=== PATIENT | female | born 1925 | race Caucasian/White ===

== ENCOUNTER → 2016-07-20 | Outpatient (CLI) | payer MEDICARE, OTHER ==
[~2016-07-20] MED LIST: ALEN70TA30 PO; AMLO5TAB4 PO; ASPI-650 PO; COMBIG5; CRES10 PO; DICY10CA62 PO; DOCU-103 PO; ENAL20TA73 PO; HYDR25TA6 PO; OMEP20CA16 PO; PRD1OP5; PREG50CA PO; TRAM50TA2 PO; TRAV5DRO5 OP
--- NOTE | 2016-07-21 19:12 | RADRPT ---
PROCEDURE: XR bilateral rib series. CLINICAL INDICATION: Bilateral rib pain. TECHNIQUE: 6 views of the left rib cage are available for review COMPARISON: 06/06/2016 FINDINGS: No acute fracture or dislocation is seen. No pneumothorax identified. No radiopaque foreign body is identified. The visualized portions of the underlying lung is clear. Advanced degenerative changes are seen in the bilateral shoulders. There is atherosclerotic calcification of the aorta. IMPRESSION: 1. Unremarkable bilateral rib cage x-ray series, specifically without displaced rib fracture or pne umothorax. RPTAT: QQ .Nate Borjas MD, Date Time Electronically viewed and signed by .Nate Borjas MD, on 07/21/2016 19:12 .M/
--- NOTE | 2016-07-22 16:03 | RADRPT ---
PROCEDURE: Right knee radiographs. CLINICAL INDICATION: Trauma due to a fall. Right knee pain. TECHNIQUE: Three views. Weight bearing. Frontal, lateral, and patellar view. COMPARISON: No prior studies are available for comparison. FINDINGS: There is no fracture or dislocation. Vascular calcifications are present consistent with atherosclerosis There are degenerative changes with osteophytes arising from all 3 joint compartment margins. There is medial and lateral joint compartment narrowing. There is lateral joint compartment deformity. There is no lytic or blastic lesion. There is no radiopaque foreign body. IMPRESSION: 1. Atherosclerosis. 2. Severe degenerative change. 3. No fracture. RPTAT: QQ .Wyatt Marie MD, MD Date Time Electronically viewed and signed by .Wyatt Marie MD, MD on 07/22/2016 16:03 .R/
--- NOTE | 2016-07-22 16:05 | RADRPT ---
PROCEDURE: XR Cervical Spine. CLINICAL INDICATION: Trauma due to a fall. Neck pain. TECHNIQUE: Three views of the cervical spine were performed. Frontal, lateral, and AP open-mouth o dontoid. The images were reviewed on a PACS workstation. COMPARISON: None. FINDINGS: This is a limited study due to shoulders overlying the lower lumbar spine even on the swimmer's view . There is no obvious fracture. There is no lytic or blastic lesion. There are degenerative changes with disk space narrowing and osteophytes at C3-4 and C6-7. There ma y be fusion at C4, C5, and C6. The prevertebral soft tissues are normal. There is calcification in the aorta consistent with atherosclerosis. IMPRESSION: 1. Limited study. No obvious fracture. 2. Degenerative changes. 3. If there is any clinical concern regarding a fracture, correlation with CT scan of the cervical spine should be considered. RPTAT: QQ .Wyatt Marie MD, MD Date Time Electronically viewed and signed by .Wyatt Marie MD, on 07/22/2016 16:05 .R/
== END | disposition home or self-care (01) ==
LOC: RAD 14:11
PROVIDERS: ATTEND Internal Medicine
DX: M54.2 Cervicalgia (principal); R07.81 Pleurodynia; M25.561 Pain in right knee; T14.90 Injury, unspecified; W18.30XA Fall on same level, unspecified, initial encounter
CPT/HCPCS: 71110; 72040; 73562